=== PATIENT | female | born 1975 | race Caucasian/White ===

== ENCOUNTER 2022-10-04 16:01 | Emergency (ER) | payer OTHER ==
[~2022-10-04] VITALS: Ht 172.7 cm; Wt 83.9 kg
[2022-10-04] MEDS ORDERED: AMBIEN5 MG PO (16:29)
== END 2022-10-04 21:30 | disposition home or self-care (01) ==
LOC: ER 16:01
DX: N39.0 Urinary tract infection, site not specified (principal)